=== PATIENT | male | born 1970 | race African-American/Black ===

== ENCOUNTER 2016-10-05 11:58 | Inpatient (IN) | payer OTHER ==
[2016-10-05 12:26] VITALS: BMI 31.1
--- NOTE | 2016-10-05 12:47 | HP ---
COWS - Scale Resting Pulse: 1= [place] 81-100 Sweatin= Chills/Flushing Restless Observation: 1= Difficult to Sit Still Pupil Size: 0= Normal to Room Light Bone or Joint Aches: 2= Severe Diffuse Aches Runny Nose/ Eye Tearin= Runny Nose/Eyes GI Upset > 30mins: 3= Vomiting/Diarrhea Tremor Observation: 2= Slight Tremor Visible Yawning Observation: 0= None Anxiety or Irritability: 2=Irritable/Anxious Goose Flesh Skin: 3=Piloerection COWS Score: 17 CIWA Score - CIWA Score Nausea/Vomitin Muscle Tremors: 4-Moderate,w/Arms Extend Anxiety: 3 Agitation: 1-Slight > Activity Paroxysmal Sweats: 3 Orientation: 0-Oriented Tacttile Disturbances: 0-None Auditory Disturbances: 0-None Visual Disturbances: 0-None Headache: 3-Moderate CIWA-Ar Total Score: 19 Admission ROS S - HPI Chief Complaint: "I am here to get clean again." Allergies/Adverse Reactions: Allergies Allergy/AdvReac Type Severity Reaction Status Date / Time Fish Containing Products Allergy Severe Rash Verified 10/05/16 12:15 tomato [Tomato] Allergy Severe Vomiting Verified 10/05/16 12:15 liver Allergy Severe Vomiting Uncoded 10/05/16 12:15 squash Allergy Severe Nausea Uncoded 10/05/16 12:15 NKDA Allergy Uncoded 10/05/16 12:15 History of Present Illness: Pt. is a 46 YO male here to Detox from Heroin and alcohol. Pt. has had several previous detox and Rehab admissions at [facility] over the last few years. Pt. also uses Xanax on a daily basis. Exam Limitations: No Limitations - Ebola screening Have you traveled outside of the country in the last 21 days: No Have you had contact with anyone from an Ebola affected area: No Have you been sick,other than usual withdrawal symptoms: No Do you have a fever: No - Review of Systems Constitutional: Chills, Diaphoresis, Fever, Loss of Appetite, Malaise, Night Sweats, Changes in sleep, Unintentional Wgt. Loss (Lost 5- 10 lbs. over last month.) EENT: reports: Tearing, Nose Congestion, Sinus Pressure Respiratory: reports: No Symptoms reported Cardiac: reports: No Symptoms Reported GI: reports: Diarrhea, Nausea, Poor Appetite, Vomiting, Abdominal cramping : reports: No Symptoms Reported Musculoskeletal: reports: Joint Pain, Muscle Pain, Joint Stiffness Integumentary: reports: No Symptoms Reported Neuro: reports: Headache, Tremors Endocrine: reports: No Symptoms Reported Hematology: reports: No Symptoms Reported Psychiatric: reports: Judgement Intact, Mood/Affect Appropiate, Orientated x3, Agitated, Anxious Other Systems: Reviewed and Negative Patient History - Patient Medical History Hx Anemia: No Hx Asthma: No Hx Chronic Obstructive Pulmonary Disease (COPD): No Hx Cancer: No Hx Cardiac Disorders: No Hx Congestive Heart Failure: No Hx Hypertension: No Hx Hypercholesterolemia: No Hx Pacemaker: No HX Cerebrovascular Accident: No Hx Seizures: No Hx Diabetes: No Hx Gastrointestinal Disorders: No Hx Liver Disease: No Hx Genitourinary Disorders: No Hx Sexually Transmitted Disorders: No Hx Renal Disease (ESRD): No Hx Thyroid Disease: No Hx Human Immunodeficiency Virus (HIV): No (NEGATIVE HX; Last Tested approx. 3 months ago.) Hx Hepatitis C: No (NEGATIVE HX; Last Tested approx. 3 months ago.) Hx Depression: No Hx Suicide Attempt: No (PATIENT DENIES CURRENT SI / HI.) Hx Bipolar Disorder: No Hx Schizophrenia: No - Patient Surgical History Past Surgical History: No Hx Neurologic Surgery: No Hx Cataract Extraction: No Hx Cardiac Surgery: No Hx Lung Surgery: No Hx Breast Surgery: No Hx Breast Biopsy: No Hx Abdominal Surgery: No Hx Appendectomy: No Hx Cholecystectomy: No Hx Genitourinary Surgery: No Hx Orthopedic Surgery: No Anesthesia Reaction: No - PPD History Previous Implant?: Yes Documented Results: Negative w/o proof Implanted On Prior [facility] Admission?: Yes Date: 07/19/15 Results: 0 mm PPD to be Administered?: Yes - Reproductive History Patient is a Female of Child Bearing Age (11 -55 yrs old): No (PATIENT IS MALE.) - Smoking Cessation Smoking history: Former smoker Have you smoked in the past 12 months: No Aproximately how many cigarettes per day: 0 If you are a former smoker, when did you quit?: 2015 Cigars Per Day: 0 Hx Chewing Tobacco Use: No Initiated information on smoking cessation: No - Substances Abused Heroin Route: Inhalation Frequency: Daily Amount used: 7 BAGS Age of first use: 38 Date of Last Use: 10/04/16 Cocaine Route: Inhalation Frequency: Daily Amount used: 7 BAGS Age of first use: 38 Date of Last Use: 10/04/16 Alcohol Route: Oral Frequency: Daily Amount used: 12 BEER BUDWEISER Age of first use: 20 Date of Last Use: 10/04/16 Alprazolam (Xanax) Route: Oral Frequency: Daily Amount used: 7 STICKS Age of first use: 25 Date of Last Use: 10/04/16 Family Disease History - Family Disease History Family History: Denies Admission Physical Exam [facility] - Vital Signs Vital Signs: Vital Signs - 24 hr 10/05/16 12:15 Temperature 97.5 F L Pulse Rate 84 Respiratory 20 Rate Blood Pressure 114/71 - Physical General Appearance: Yes: No Apparent Distress, Nourished, Appropriately Dressed , Tremorous, Irritable, Anxious HEENTM: Yes: Hearing grossly Normal, Normocephalic, Normal Voice, ROLY, Pharynx Normal Respiratory: Yes: Chest Non-Tender, Lungs Clear, No Respiratory Distress Neck: Yes: No masses,lesions,Nodules, Supple, Trachea in good position Breast: Yes: Breast Exam Deferred Cardiology: Yes: Regular Rhythm, Regular Rate, S1, S2 Abdominal: Yes: Normal Bowel Sounds, Non Tender, Soft Genitourinary: Yes: Within Normal Limits Back: Yes: Normal Inspection Musculoskeletal: Yes: Gait Steady, Joint Stiffness Extremities: Yes: Normal Inspection, Non-Tender, Tremors Neurological: Yes: Fully Oriented, Alert, Normal Mood/Affect, Normal Response Integumentary: Yes: Normal Color, Dry, Warm Lymphatic: Yes: Within Normal Limits - Diagnostic (1) Alcohol dependence with uncomplicated withdrawal Current Visit: Yes Status: Acute (2) Sedative, hypnotic or anxiolytic dependence with withdrawal, uncomplicated Current Visit: Yes Status: Acute (3) Cocaine dependence, uncomplicated Current Visit: Yes Status: Acute (4) Opioid dependence with withdrawal Current Visit: Yes Status: Acute Cleared for Admission [facility] - Detox or Rehab [facility] Level of Care: Medically Managed Detox Regimen/Protocol: Methadone/Librium [facility] Breath Alcohol Content Breath Alcohol Content: 0 Urine Drug Screen - Results Drug Screen Negative: No Urine Drug Screen Results: OPI-Opiates, MTD-Methadone
[2016-10-05] MEDS ORDERED: MAGNESIUM CITRATE 300 ML BOTTLE PO PRN (13:13)
[2016-10-05] MEDS ORDERED: MENTHOL/PHENOL 1 EACH UD MM PRN (13:13)
[2016-10-05] MEDS ORDERED: IBUPROFEN 400 MG TABLET (FP) PO PRN (13:13)
[2016-10-05] MEDS ORDERED: METHADONE HCL 10 MG TABLET (FOR DETOX USE ONLY) PO ONE ×2 (13:13→23:00)
[2016-10-05] MEDS ORDERED: P-EPHED 60MG/TRIPROLIDI 2.5MG TABLET PO PRN (13:13)
[2016-10-05] MEDS ORDERED: MAGNESIUM HYDROX 2400MG/30ML ORAL SUSPENSION 30 ML CUP PO PRN (13:13)
[2016-10-05] MEDS ORDERED: MAG HYDROX/AL HYDROX/SIMETH 30 ML UNIT-DOSE CUP PO PRN (13:13)
[2016-10-05] MEDS ORDERED: hydrOXYzine PAMOATE 50 MG CAPSULE (FP) PO PRN (13:13)
[2016-10-05] MEDS ORDERED: ACETAMINOPHEN 325 MG TABLET (FP) PO PRN (13:13)
[2016-10-05] MEDS ORDERED: LOPERAMIDE HCL 2 MG CAPSULE PO PRN (13:13)
[2016-10-05] MEDS ORDERED: chlordiazePOXIDE HCL 25 MG CAPSULE PO PRN (13:13)
[2016-10-05] MEDS ORDERED: chlordiazePOXIDE HCL 25 MG CAPSULE PO ONE (13:13)
[2016-10-05] MEDS ORDERED: guaiFENesin/D-METHORPHAN HB 10 ML UNIT-DOSE CUPS PO PRN (13:13)
--- NOTE | 2016-10-05 16:52 | EKG ---
Test Reason : Blood Pressure : / mmHG Vent. Rate : 074 BPM Atrial Rate : 074 BPM P-R Int : 156 ms QRS Dur : 086 ms QT Int : 370 ms P-R-T Axes : 063 033 022 degrees QTc Int : 410 ms NORMAL SINUS RHYTHM NORMAL ECG NO PREVIOUS ECGS AVAILABLE Confirmed by MIKE SZYMANSKI MD ([id number]) on 10/05/2016 4:52:22 PM Referred By: Confirmed By:MIKE SZYMANSKI MD
[2016-10-05] MEDS: chlordiazePOXIDE HCL 25 MG CAPSULE PO SCH ×2 (17:40→22:51)
[2016-10-05 20:33] LABS: URINE APPEARANCE CLEAR; URINE BILIRUBIN NEGATIVE (NEGATIVE); URINE BLOOD NEGATIVE (NEGATIVE); URINE COLOR YELLOW; URINE GLUCOSE (UA) NEGATIVE (NEGATIVE); URINE KETONE NEGATIVE (NEGATIVE); URINE LEUK ESTERASE NEGATIVE (NEGATIVE); URINE NITRITE NEGATIVE (NEGATIVE); URINE PROTEIN NEGATIVE (NEGATIVE); URINE UROBILINOGEN NEGATIVE E.U./dl (0.2-1.0)
[2016-10-05] MEDS: THIAMINE HCL 100 MG TABLET (FP) PO SCH (22:50)
[2016-10-05] MEDS: diphenhydrAMINE HCL 50 MG CAPSULE PO PRN (22:51)
[2016-10-06] MEDS: diphenhydrAMINE HCL 50 MG CAPSULE PO PRN (01:52)
[2016-10-06] MEDS: chlordiazePOXIDE HCL 25 MG CAPSULE PO SCH ×4 (06:17→22:31)
[2016-10-06 09:58] LABS: MCH 29.5 pg (25.7-33.7); MCHC 32.9 g/dl (32.0-35.9); MEAN CELL VOLUME 89.8 fl (80-96); MEAN PLT VOLUME 9.4 fl (7.5-11.1); PLATELET COUNT 142 K/MM3 (134-434); RDW 13.3 % (11.9-15.9); WHITE BLOOD COUNT 5.4 K/mm3 (4.0-10.0)
[2016-10-06] MEDS ORDERED: METHADONE HCL 10 MG TABLET (FOR DETOX USE ONLY) PO SCH (10:00)
[2016-10-06] MEDS: PRENATAL VITAMINS W/ FOLIC ACID TABLET (FP) PO SCH (10:32)
[2016-10-06 10:34] LABS: ALBUMIN 3.4 g/dl (3.4-5.0); ANION GAP 9 (8-16); CALCIUM 8.3 mg/dL (8.5-10.1); CO2 27 mmol/L (21-32); CREATININE 1.1 mg/dL (0.7-1.3); GLUCOSE,RANDOM 95 mg/dL (74-106); SGOT/AST 27 U/L (15-37); SGPT/ALT 60 U/L (12-78)
[2016-10-06 10:36] LABS: ALK PHOS 81 U/L (45-117); BILIRUBIN,TOTAL 0.3 mg/dL (0.2-1.0); TOT PROT 6.6 g/dl (6.4-8.2)
[2016-10-06] MEDS ORDERED: INFLUENZA VACCINE 45 MCG/0.5 ML (MDV 16-17) IM ONE (12:00)
--- NOTE | 2016-10-06 14:30 | PN ---
S CIWA - CIWA Score Nausea/Vomitin-Mild Nausea/No Vomiting Muscle Tremors: 4-Moderate,w/Arms Extend Anxiety: 4-Mod. Anxious/Guarded Agitation: 4-Moderately Restless Paroxysmal Sweats: No Perspiration Orientation: 0-Oriented Tacttile Disturbances: 1-Very Mild Itch/Numbness Auditory Disturbances: 0-None Visual Disturbances: 0-None Headache: 2-Mild CIWA-Ar Total Score: 16 BHS COWS - Scale Resting Pulse: 0= DC 80 or Below Sweatin=Flushed/Facial Moisture Restless Observation: 3= Extraneous Movement Pupil Size: 0= Normal to Room Light Bone or Joint Aches: 2= Severe Diffuse Aches Runny Nose/ Eye Tearin= Nasal Congestion GI Upset > 30mins: 3= Vomiting/Diarrhea Tremor Observation of Outstretched Hands: 2= Slight Tremor Visible Yawning Observation: 0= None Anxiety or Irritability: 2=Irritable/Anxious Goose Flesh Skin: 0=Smooth Skin COWS Score: 15 BHS Progress Note (SOAP) Subjective: Nausea, diarrhea, sweating, tremor, anxiety, restless, interrupted sleep ( patient request ambien 10mg tonight and psychiatry consult in AM for trazodone) Objective: 10/06/16 14:28 Last Vital Signs Temp Pulse Resp BP Pulse Ox 96.8 F L 78 18 109/71 10/06/16 14:04 10/06/16 14:04 10/06/16 14:04 10/06/16 14:04 Laboratory Tests 10/05/16 10/06/16 10/06/16 19:00 07:20 07:20 WBC 5.4 RBC 5.02 Hgb 14.8 Hct 45.0 MCV 89.8 MCHC 32.9 RDW 13.3 Plt Count 142 MPV 9.4 D Sodium 138 Potassium 4.2 Chloride 102 Carbon Dioxide 27 Anion Gap 9 BUN 15 Creatinine 1.1 D Creat Clearance w eGFR > 60 Random Glucose 95 D Calcium 8.3 L Total Bilirubin 0.3 D AST 27 D ALT 60 D Alkaline Phosphatase 81 Total Protein 6.6 Albumin 3.4 Urine Color Yellow Urine Appearance Clear Urine pH 6.0 Ur Specific [place] 1.024 Urine Protein Negative Urine Glucose (UA) Negative Urine Ketones Negative Urine Blood Negative Urine Nitrite Negative Urine Bilirubin Negative Urine Urobilinogen Negative Ur Leukocyte Esterase Negative RPR Titer 10/06/16 07:20 WBC RBC Hgb Hct MCV MCHC RDW Plt Count MPV Sodium Potassium Chloride Carbon Dioxide Anion Gap BUN Creatinine Creat Clearance w eGFR Random Glucose Calcium Total Bilirubin AST ALT Alkaline Phosphatase Total Protein Albumin Urine Color Urine Appearance Urine pH Ur Specific [place] Urine Protein Urine Glucose (UA) Urine Ketones Urine Blood Urine Nitrite Urine Bilirubin Urine Urobilinogen Ur Leukocyte Esterase RPR Titer Nonreactive Labs noted Assessment: 10/06/16 14:28 Withdrawal symptoms Plan: Continue detox Ambien 10mg PO x 1 dose tonight and psychiatry consult in AM for rx for trazodone as per patient's request
[2016-10-06] MEDS ORDERED: ZOLPIDEM TARTRATE 5 MG TABLET PO ONE (22:00)
[2016-10-06] MEDS: THIAMINE HCL 100 MG TABLET (FP) PO SCH (22:31)
[2016-10-07] MEDS: chlordiazePOXIDE HCL 25 MG CAPSULE PO SCH ×2 (05:54→10:33)
[2016-10-07] MEDS: METHADONE HCL 5 MG TABLET (FOR DETOX USE ONLY) PO SCH (10:33)
[2016-10-07] MEDS: PRENATAL VITAMINS W/ FOLIC ACID TABLET (FP) PO SCH (10:33)
--- NOTE | 2016-10-07 13:59 | CONSULT ---
[facility] Psychiatric Consult - Data Date of interview: 10/07/16 Admission source: [facility] Identifying data: This is 46 years old male with no psychiatric hospitalization history,history of MDD, PTSD, Personality disorder, preoccupied with insomnia, reports tsaking prior to admission: Seroquel 100mg po qhs Substance Abuse History: Smoking history: Former smoker. Have you smoked in the past 12 months: No. Aproximately how many cigarettes per day: 0. If you are a former smoker, when did you quit?: 2014. Cigars Per Day: 0. Hx Chewing Tobacco Use: No. Initiated information on smoking cessation: No. - Substances Abused. Heroin. Route: Inhalation. Frequency: Daily. Amount used: 7 BAGS. Age of first use: 38. Date of Last Use: 10/04/16. Cocaine. Route: Inhalation. Frequency: Daily. Amount used: 7 BAGS. Age of first use: 38. Date of Last Use: 10/04/16. Alcohol. Route: Oral. Frequency: Daily. Amount used: 12 BEER BUDWEISER. Age of first use: 20. Date of Last Use: . Alprazolam (Xanax). Route: Oral. Frequency: Daily. Amount used: 7 STICKS. Age of first use: 25. Date of Last Use: 10/04/16 Medical History: Denies Physical/Sexual Abuse/Trauma History: Patient reports to car MDD, PTSD, reports insomnia, reports taking prior to admission for his insomnia: Seroquel 100mg po qhs Additional Comment: Seroquel 100mg po qhs Mental Status Exam - Mental Status Exam Alert and Oriented to: Person Cognitive Function: Fair Patient Appearance: Unkempt Mood: Nervous, Anxious Affect: Labile Patient Behavior: Impulsive, Cooperative Speech Pattern: Excessive Voice Loudness: Mildly Loud Thought Process: Goal Oriented Thought Disorder: Being Controlled Hallucinations: Denies Suicidal Ideation: Denies Homicidal Ideation: Denies Insight/Judgement: Fair Sleep: Difficulty falling asleep Appetite: Fair Muscle strength/Tone: Normal Gait/Station: Normal Additional Comments: Seroquel 100mg po qhs Psychiatric Findings - Problem List (Protivin 1, 2,3) (1) Alcohol dependence with uncomplicated withdrawal Current Visit: Yes Status: Acute (2) Cocaine dependence with withdrawal Current Visit: Yes Status: Acute (3) Cocaine dependence, uncomplicated Current Visit: Yes Status: Acute (4) Opioid dependence with withdrawal Current Visit: Yes Status: Acute (5) Sedative, hypnotic or anxiolytic dependence with withdrawal, uncomplicated Current Visit: Yes Status: Acute (6) Cocaine dependence Current Visit: No Status: Acute (7) Opioid dependence Current Visit: No Status: Acute (8) Personality disorder, unspecified Current Visit: No Status: Acute (9) Substance induced mood disorder Current Visit: No Status: Acute (10) Major depressive disorder Current Visit: No Status: Chronic (11) Nicotine dependence Current Visit: No Status: Chronic Qualifiers: Nicotine product type: cigarettes Substance use status: uncomplicated Qualified Code(s): F17.210 - Nicotine dependence, cigarettes, uncomplicated (12) PTSD Current Visit: No Status: Chronic (13) Borderline personality disorder Current Visit: Yes Status: Suspected - Initial Treatment Plan Initial Treatment Plan: Seroquel 100mg po qhs
--- NOTE | 2016-10-07 14:02 | PN ---
S CIWA - CIWA Score Nausea/Vomitin Muscle Tremors: 3 Anxiety: 2 Agitation: 3 Paroxysmal Sweats: 3 Orientation: 0-Oriented Tacttile Disturbances: 0-None Auditory Disturbances: 1-Very Mild Visual Disturbances: 2-Mild Sensitivity Headache: 0-None Present CIWA-Ar Total Score: 19 BHS COWS - Scale Resting Pulse: 1= [place] 81-100 Sweatin= Chills/Flushing Restless Observation: 1= Difficult to Sit Still Pupil Size: 0= Normal to Room Light Bone or Joint Aches: 2= Severe Diffuse Aches Runny Nose/ Eye Tearin= Nasal Congestion GI Upset > 30mins: 3= Vomiting/Diarrhea Tremor Observation of Outstretched Hands: 2= Slight Tremor Visible Yawning Observation: 0= None Anxiety or Irritability: 1=Feels Anxious/Irritable Goose Flesh Skin: 3=Piloerection COWS Score: 15 S Progress Note (SOAP) Subjective: Sweating, Tremors, Interrupted sleep, Tremors, Vomiting, Body Aches. Objective: PT. A &O X 3, OBSERVED AMBULATING ON UNIT. 10/07/16 14:00 Vital Signs Temperature 97.3 F L 10/07/16 13:24 Pulse Rate 86 10/07/16 13:24 Respiratory Rate 18 10/07/16 13:24 Blood Pressure 129/73 10/07/16 13:24 O2 Sat by Pulse Oximetry (%) Laboratory Last Values WBC 5.4 K/mm3 (4.0-10.0) 10/06/16 07:20 RBC 5.02 M/mm3 (4.00-5.60) 10/06/16 07:20 Hgb 14.8 GM/dL (11.7-16.9) 10/06/16 07:20 Hct 45.0 % (35.4-49) 10/06/16 07:20 MCV 89.8 fl (80-96) 10/06/16 07:20 MCHC 32.9 g/dl (32.0-35.9) 10/06/16 07:20 RDW 13.3 % (11.9-15.9) 10/06/16 07:20 Plt Count 142 K/MM3 (134-434) 10/06/16 07:20 MPV 9.4 fl (7.5-11.1) D 10/06/16 07:20 Sodium 138 mmol/L (136-145) 10/06/16 07:20 Potassium 4.2 mmol/L (3.5-5.1) 10/06/16 07:20 Chloride 102 mmol/L (98-107) 10/06/16 07:20 Carbon Dioxide 27 mmol/L (21-32) 10/06/16 07:20 Anion Gap 9 (8-16) 10/06/16 07:20 BUN 15 mg/dL (7-18) 10/06/16 07:20 Creatinine 1.1 mg/dL (0.7-1.3) D 10/06/16 07:20 Creat Clearance w eGFR > 60 (>60) 10/06/16 07:20 Random Glucose 95 mg/dL (74-106) D 10/06/16 07:20 Calcium 8.3 mg/dL (8.5-10.1) L 10/06/16 07:20 Total Bilirubin 0.3 mg/dL (0.2-1.0) D 10/06/16 07:20 AST 27 U/L (15-37) D 10/06/16 07:20 ALT 60 U/L (12-78) D 10/06/16 07:20 Alkaline Phosphatase 81 U/L (45-117) 10/06/16 07:20 Total Protein 6.6 g/dl (6.4-8.2) 10/06/16 07:20 Albumin 3.4 g/dl (3.4-5.0) 10/06/16 07:20 Urine Color Yellow 10/05/16 19:00 Urine Appearance Clear 10/05/16 19:00 Urine pH 6.0 (5.0-8.0) 10/05/16 19:00 Ur Specific [place] 1.024 (1.001-1.035) 10/05/16 19:00 Urine Protein Negative (NEGATIVE) 10/05/16 19:00 Urine Glucose (UA) Negative (NEGATIVE) 10/05/16 19:00 Urine Ketones Negative (NEGATIVE) 10/05/16 19:00 Urine Blood Negative (NEGATIVE) 10/05/16 19:00 Urine Nitrite Negative (NEGATIVE) 10/05/16 19:00 Urine Bilirubin Negative (NEGATIVE) 10/05/16 19:00 Urine Urobilinogen Negative E.U./dl (0.2-1.0) 10/05/16 19:00 Ur Leukocyte Esterase Negative (NEGATIVE) 10/05/16 19:00 RPR Titer Nonreactive (NONREACTIVE) 10/06/16 07:20 LABS NOTED. 10/07/16 14:02 Assessment: 10/07/16 14:01 WITHDRAWAL SYMPTOMS. Plan: CONTINUE DETOX.
[2016-10-07] MEDS: chlordiazePOXIDE 5 MG CAPSULE PO SCH ×2 (17:04→22:50)
[2016-10-07] MEDS ORDERED: QUEtiapine FUMARATE 100 MG TABLET (FP) PO SCH (22:00)
[2016-10-07] MEDS: THIAMINE HCL 100 MG TABLET (FP) PO SCH (22:50)
[2016-10-08] MEDS: chlordiazePOXIDE 5 MG CAPSULE PO SCH ×2 (06:24→10:35)
[2016-10-08] MEDS: PRENATAL VITAMINS W/ FOLIC ACID TABLET (FP) PO SCH (10:34)
[2016-10-08] MEDS: METHADONE HCL 5 MG TABLET (FOR DETOX USE ONLY) PO SCH (10:35)
--- NOTE | 2016-10-08 11:08 | PN ---
BHS Progress Note (SOAP) Subjective: SWEATING,INTERRUPTED SLEEP,RESTLESS Objective: 10/08/16 11:07 Vital Signs - 8 hr 10/08/16 10/08/16 06:39 09:54 Temperature 96.8 F L 98.3 F Pulse Rate 108 H 95 H Respiratory 18 18 Rate Blood Pressure 157/89 131/86 Laboratory Tests 10/05/16 10/06/16 10/06/16 19:00 07:20 07:20 WBC 5.4 RBC 5.02 Hgb 14.8 Hct 45.0 MCV 89.8 MCHC 32.9 RDW 13.3 Plt Count 142 MPV 9.4 D Sodium 138 Potassium 4.2 Chloride 102 Carbon Dioxide 27 Anion Gap 9 BUN 15 Creatinine 1.1 D Creat Clearance w eGFR > 60 Random Glucose 95 D Calcium 8.3 L Total Bilirubin 0.3 D AST 27 D ALT 60 D Alkaline Phosphatase 81 Total Protein 6.6 Albumin 3.4 Urine Color Yellow Urine Appearance Clear Urine pH 6.0 Ur Specific [place] 1.024 Urine Protein Negative Urine Glucose (UA) Negative Urine Ketones Negative Urine Blood Negative Urine Nitrite Negative Urine Bilirubin Negative Urine Urobilinogen Negative Ur Leukocyte Esterase Negative RPR Titer 10/06/16 07:20 WBC RBC Hgb Hct MCV MCHC RDW Plt Count MPV Sodium Potassium Chloride Carbon Dioxide Anion Gap BUN Creatinine Creat Clearance w eGFR Random Glucose Calcium Total Bilirubin AST ALT Alkaline Phosphatase Total Protein Albumin Urine Color Urine Appearance Urine pH Ur Specific [place] Urine Protein Urine Glucose (UA) Urine Ketones Urine Blood Urine Nitrite Urine Bilirubin Urine Urobilinogen Ur Leukocyte Esterase RPR Titer Nonreactive LABS NOTED Assessment: 10/08/16 11:08 WITHDRAWAL SX. Plan: CONTINUE DETOX
--- NOTE | 2016-10-08 12:27 | PN ---
[facility] Progress Note Note: Psychiatry Attending's note : Asked to see this patient. Reason : oversedation. Chart reviewed.Patient examined at bedside. Lying in bed.Asleep.Answers to his name. Aware of his surroundings.Conversant but slurred. Markedly sedated.Able to follow simple commands. Relates well with commercial real estate underwriter + another staff at bedside. Normal vitals.No evidence of physical distress.Fair hygiene. Intervention: Seroquel is discontinued. Nursing staff made aware. Suggest adjustment of detox protocol.
[2016-10-08] MEDS: chlordiazePOXIDE HCL 10 MG CAPSULE PO SCH ×2 (17:24→22:39)
[2016-10-08] MEDS: THIAMINE HCL 100 MG TABLET (FP) PO SCH (22:39)
[2016-10-08] MEDS: diphenhydrAMINE HCL 50 MG CAPSULE PO PRN (22:41)
[2016-10-09] MEDS: chlordiazePOXIDE HCL 10 MG CAPSULE PO SCH ×2 (06:50→10:35)
[2016-10-09] MEDS ORDERED: METHADONE HCL 10 MG TABLET (FOR DETOX USE ONLY) PO SCH (10:00)
[2016-10-09] MEDS: PRENATAL VITAMINS W/ FOLIC ACID TABLET (FP) PO SCH (10:34)
--- NOTE | 2016-10-09 18:03 | PN ---
B[facility] Progress Note (SOAP) Subjective: SWEATING,INTERRUPTED SLEEP,RESTLESS Objective: 10/09/16 18:02 Vital Signs - 8 hr 10/09/16 10/09/16 13:24 17:34 Temperature 97.1 F L 97.5 F L Pulse Rate 91 H 90 Respiratory 20 20 Rate Blood Pressure 126/67 111/73 Laboratory Tests 10/05/16 10/06/16 10/06/16 19:00 07:20 07:20 WBC 5.4 RBC 5.02 Hgb 14.8 Hct 45.0 MCV 89.8 MCHC 32.9 RDW 13.3 Plt Count 142 MPV 9.4 D Sodium 138 Potassium 4.2 Chloride 102 Carbon Dioxide 27 Anion Gap 9 BUN 15 Creatinine 1.1 D Creat Clearance w eGFR > 60 Random Glucose 95 D Calcium 8.3 L Total Bilirubin 0.3 D AST 27 D ALT 60 D Alkaline Phosphatase 81 Total Protein 6.6 Albumin 3.4 Urine Color Yellow Urine Appearance Clear Urine pH 6.0 Ur Specific [place] 1.024 Urine Protein Negative Urine Glucose (UA) Negative Urine Ketones Negative Urine Blood Negative Urine Nitrite Negative Urine Bilirubin Negative Urine Urobilinogen Negative Ur Leukocyte Esterase Negative RPR Titer 10/06/16 07:20 WBC RBC Hgb Hct MCV MCHC RDW Plt Count MPV Sodium Potassium Chloride Carbon Dioxide Anion Gap BUN Creatinine Creat Clearance w eGFR Random Glucose Calcium Total Bilirubin AST ALT Alkaline Phosphatase Total Protein Albumin Urine Color Urine Appearance Urine pH Ur Specific [place] Urine Protein Urine Glucose (UA) Urine Ketones Urine Blood Urine Nitrite Urine Bilirubin Urine Urobilinogen Ur Leukocyte Esterase RPR Titer Nonreactive LABS NOTED Assessment: 10/09/16 18:03 WITHDRAWAL SX Plan: CONTINUE DETOX
--- NOTE | 2016-10-09 19:04 | PN ---
[facility] Progress Note Note: Psychiatry Attending's note: Met with patient. Doing well.Alert,steady,conversant and active. No complaints.Fully awake.Well groomed.Sociable. Mr Chand is requesting a lower dose of seroquel.Wants 50 mg/hs. Discussed with the patient.Seroquel 50 mg po hs.Ordered.Normal vitals.
[2016-10-09] MEDS ORDERED: QUEtiapine FUMARATE 50 MG TABLET PO SCH (22:00)
[2016-10-09] MEDS: THIAMINE HCL 100 MG TABLET (FP) PO SCH (22:39)
[2016-10-10] MEDS ORDERED: METHADONE HCL 5 MG TABLET (FOR DETOX USE ONLY) PO SCH (06:00)
[2016-10-10 10:15] VITALS: BP 125/78; PULSE 97; TEMP 98.6
[2016-10-10] MEDS: PRENATAL VITAMINS W/ FOLIC ACID TABLET (FP) PO SCH (10:35)
--- NOTE | 2016-10-10 11:15 | DS ---
[facility] Detox Discharge Summary Admission Date: 10/05/16 Discharge Date: 10/10/16 - History Present History: Alcohol Dependence, Cocaine Dependence, Opioid Dependence Pertinent Past History: INSOMNIA - Physical Exam Results Vital Signs: Vital Signs Temperature 98.6 F 10/10/16 10:14 Pulse Rate 97 H 10/10/16 10:14 Respiratory Rate 18 10/10/16 10:14 Blood Pressure 125/78 10/10/16 10:14 O2 Sat by Pulse Oximetry (%) Pertinent Admission Physical Exam Findings: WITHDRAWAL SX. Laboratory Tests 10/05/16 10/06/16 10/06/16 19:00 07:20 07:20 WBC 5.4 RBC 5.02 Hgb 14.8 Hct 45.0 MCV 89.8 MCHC 32.9 RDW 13.3 Plt Count 142 MPV 9.4 D Sodium 138 Potassium 4.2 Chloride 102 Carbon Dioxide 27 Anion Gap 9 BUN 15 Creatinine 1.1 D Creat Clearance w eGFR > 60 Random Glucose 95 D Calcium 8.3 L Total Bilirubin 0.3 D AST 27 D ALT 60 D Alkaline Phosphatase 81 Total Protein 6.6 Albumin 3.4 Urine Color Yellow Urine Appearance Clear Urine pH 6.0 Ur Specific [place] 1.024 Urine Protein Negative Urine Glucose (UA) Negative Urine Ketones Negative Urine Blood Negative Urine Nitrite Negative Urine Bilirubin Negative Urine Urobilinogen Negative Ur Leukocyte Esterase Negative RPR Titer 10/06/16 07:20 WBC RBC Hgb Hct MCV MCHC RDW Plt Count MPV Sodium Potassium Chloride Carbon Dioxide Anion Gap BUN Creatinine Creat Clearance w eGFR Random Glucose Calcium Total Bilirubin AST ALT Alkaline Phosphatase Total Protein Albumin Urine Color Urine Appearance Urine pH Ur Specific [place] Urine Protein Urine Glucose (UA) Urine Ketones Urine Blood Urine Nitrite Urine Bilirubin Urine Urobilinogen Ur Leukocyte Esterase RPR Titer Nonreactive LABS NOTED - Treatment Hospital Course: Detox Protocol Followed, Detoxed Safely, Responded well, Discharged Condition Good, Rehab Referral Accepted - Medication Discharge Medications: Ambulatory Orders Quetiapine Fumarate [Seroquel] 100 mg PO HS #30 tablet 10/07/16 - Diagnosis (1) Alcohol dependence with uncomplicated withdrawal Current Visit: Yes Status: Acute (2) Cocaine dependence, uncomplicated Current Visit: Yes Status: Acute (3) Opioid dependence with withdrawal Current Visit: Yes Status: Acute (4) Sedative, hypnotic or anxiolytic dependence with withdrawal, uncomplicated Current Visit: Yes Status: Acute (5) Personality disorder, unspecified Current Visit: No Status: Acute (6) Substance induced mood disorder Current Visit: No Status: Acute (7) Borderline personality disorder Current Visit: Yes Status: Suspected (8) Nicotine dependence Current Visit: No Status: Chronic Qualifiers: Nicotine product type: cigarettes Substance use status: uncomplicated Qualified Code(s): F17.210 - Nicotine dependence, cigarettes, uncomplicated - AMA Did Patient Leave Against Medical Advice: No
== END 2016-10-10 11:13 | disposition other institution (70) | DRG 773 ==
LOC: YASAS 11:58 → Y3N 12:46
PROVIDERS: ADMIT Internal Medicine; ATTEND Internal Medicine
PROC: HZ2ZZZZ Detoxification Services for Substance Abuse Treatment (ICD-10-PCS; principal; 2016-10-10)
DX: F11.23 Opioid dependence with withdrawal (principal); F13.230 Sedative, hypnotic or anxiolytic dependence with withdrawal, uncomplicated; F10.230 Alcohol dependence with withdrawal, uncomplicated; F14.20 Cocaine dependence, uncomplicated; F17.210 Nicotine dependence, cigarettes, uncomplicated; F33.9 Major depressive disorder, recurrent, unspecified; F60.9 Personality disorder, unspecified; F19.24 Other psychoactive substance dependence with psychoactive substance-induced mood disorder; F43.10 Post-traumatic stress disorder, unspecified; Z59.0 Homelessness
CPT/HCPCS: 36415; 80053; 81003; 85027; 86593; 93005; 93010

== ENCOUNTER 2016-10-10 11:27 | Inpatient (IN) | payer OTHER ==
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
[2016-10-10 13:55] VITALS: BMI 33.2
[2016-10-10] MEDS ORDERED: guaiFENesin/D-METHORPHAN HB 10 ML UNIT-DOSE CUPS PO PRN (14:43)
[2016-10-10] MEDS ORDERED: MAG HYDROX/AL HYDROX/SIMETH 30 ML UNIT-DOSE CUP PO PRN (14:43)
[2016-10-10] MEDS ORDERED: ACETAMINOPHEN 325 MG TABLET (FP) PO PRN (14:43)
[2016-10-10] MEDS ORDERED: hydrOXYzine PAMOATE 25 MG CAPSULE (FP) PO PRN (14:43)
[2016-10-10] MEDS ORDERED: NICOTINE POLACRILEX 2 MG GUM BUC PRN (14:43)
[2016-10-10] MEDS ORDERED: MAGNESIUM HYDROX 2400MG/30ML ORAL SUSPENSION 30 ML CUP PO PRN (14:43)
[2016-10-10] MEDS ORDERED: LOPERAMIDE HCL 2 MG CAPSULE PO PRN (14:43)
[2016-10-10] MEDS ORDERED: P-EPHED 60MG/TRIPROLIDI 2.5MG TABLET PO PRN (14:43)
[2016-10-10] MEDS ORDERED: IBUPROFEN 400 MG TABLET (FP) PO PRN (14:43)
[2016-10-10] MEDS ORDERED: MENTHOL/PHENOL 1 EACH UD MM PRN (14:43)
[2016-10-10] MEDS ORDERED: MAGNESIUM CITRATE 300 ML BOTTLE PO PRN (14:43)
[2016-10-10] MEDS ORDERED: NICOTINE 14 MG/24 HOURS TOPICAL PATCH TD SCH (14:45)
--- NOTE | 2016-10-10 18:04 | HP ---
[facility] Re[facility] Assess/Revision - Admission History Admitted to Rehab from: [facility] [place] Date of Admission to Rehab: 10/10/16 - Vital signs Vital Signs: Vital Signs Period Temp Pulse Resp BP Sys/Heller Pulse Ox Last 24 Hr 98.5 F 91 18 133/88 - Findings Detox History & Physical reviewed: Yes Concur with findings: Yes Comments/Additional Findings: trasnferred from detox to rehab admission as per protocol
[2016-10-10] MEDS: THIAMINE HCL 100 MG TABLET (FP) PO SCH (21:36)
[2016-10-10] MEDS: QUEtiapine FUMARATE 100 MG TABLET (FP) PO SCH (21:36)
[2016-10-11] MEDS: PRENATAL VITAMINS W/ FOLIC ACID TABLET (FP) PO SCH (09:39)
[2016-10-11] MEDS: buPROPion HCL 100 MG TABLET PO SCH (09:39)
[2016-10-11] MEDS: QUEtiapine FUMARATE 100 MG TABLET (FP) PO SCH (21:37)
[2016-10-11] MEDS: THIAMINE HCL 100 MG TABLET (FP) PO SCH (21:37)
[2016-10-11] MEDS: diphenhydrAMINE HCL 50 MG CAPSULE PO PRN (21:38)
[2016-10-12] MEDS: buPROPion HCL 100 MG TABLET PO SCH (10:28)
[2016-10-12] MEDS: PRENATAL VITAMINS W/ FOLIC ACID TABLET (FP) PO SCH (10:28)
[2016-10-12] MEDS: QUEtiapine FUMARATE 100 MG TABLET (FP) PO SCH (21:40)
[2016-10-12] MEDS: THIAMINE HCL 100 MG TABLET (FP) PO SCH (21:40)
[2016-10-12] MEDS: diphenhydrAMINE HCL 50 MG CAPSULE PO PRN (21:41)
[2016-10-13] MEDS: buPROPion HCL 100 MG TABLET PO SCH (10:22)
[2016-10-13] MEDS: PRENATAL VITAMINS W/ FOLIC ACID TABLET (FP) PO SCH (10:22)
[2016-10-13] MEDS: QUEtiapine FUMARATE 100 MG TABLET (FP) PO SCH (22:05)
[2016-10-13] MEDS: THIAMINE HCL 100 MG TABLET (FP) PO SCH (22:05)
[2016-10-14] MEDS: PRENATAL VITAMINS W/ FOLIC ACID TABLET (FP) PO SCH (09:54)
[2016-10-14] MEDS: buPROPion HCL 100 MG TABLET PO SCH (09:54)
[2016-10-14] MEDS: QUEtiapine FUMARATE 100 MG TABLET (FP) PO SCH (21:50)
[2016-10-14] MEDS: THIAMINE HCL 100 MG TABLET (FP) PO SCH (21:50)
[2016-10-15] MEDS: buPROPion HCL 100 MG TABLET PO SCH (09:55)
[2016-10-15] MEDS: PRENATAL VITAMINS W/ FOLIC ACID TABLET (FP) PO SCH (09:55)
[2016-10-15] MEDS: THIAMINE HCL 100 MG TABLET (FP) PO SCH (21:36)
[2016-10-15] MEDS: QUEtiapine FUMARATE 100 MG TABLET (FP) PO SCH (21:36)
[2016-10-16] MEDS: buPROPion HCL 100 MG TABLET PO SCH (09:34)
[2016-10-16] MEDS: PRENATAL VITAMINS W/ FOLIC ACID TABLET (FP) PO SCH (09:34)
[2016-10-16] MEDS: QUEtiapine FUMARATE 100 MG TABLET (FP) PO SCH (21:55)
[2016-10-16] MEDS: THIAMINE HCL 100 MG TABLET (FP) PO SCH (21:55)
[2016-10-17] MEDS: PRENATAL VITAMINS W/ FOLIC ACID TABLET (FP) PO SCH (09:38)
[2016-10-17] MEDS: buPROPion HCL 100 MG TABLET PO SCH (09:38)
[2016-10-17] MEDS: THIAMINE HCL 100 MG TABLET (FP) PO SCH (22:06)
[2016-10-17] MEDS: QUEtiapine FUMARATE 100 MG TABLET (FP) PO SCH (22:06)
[2016-10-18] MEDS: PRENATAL VITAMINS W/ FOLIC ACID TABLET (FP) PO SCH (09:42)
[2016-10-18] MEDS: buPROPion HCL 100 MG TABLET PO SCH (09:43)
--- NOTE | 2016-10-18 11:55 | PN ---
Psychiatric Progress Note Vital Signs: Vital Signs Period Temp Pulse Resp BP Sys/Heller Pulse Ox Last 24 Hr 98.1 F 84 18-18 128/81 Date of Session: 10/18/16 Chief Complaint:: depressed HPI: Patient is addressing alcohol dependence comorbid PTSD and Depressive disorder. ROS: WNL Current Medications: Active Medications Generic Name Dose Route Start Last Admin Trade Name Freq PRN Reason Stop Dose Admin Acetaminophen 650 mg 10/10/16 14:43 Tylenol - PO Q4H PRN FEVER OR PAIN Al Hydroxide/Mg Hydroxide 30 ml 10/10/16 14:43 Mylanta Oral Suspension - PO Q6H PRN DYSPEPSIA Bupropion HCl 150 mg 10/19/16 10:00 Wellbutrin Xl - PO DAILY TARA Diphenhydramine HCl 50 mg 10/10/16 14:43 10/12/16 21:41 Benadryl - PO 50 mg HSMR1 PRN Administration FOR ITCHING Eucalyptus/Menthol/Phenol/Sorbitol 1 each 10/10/16 14:43 Cepastat Lozenge - MM Q4H PRN SORE THROAT Guaifenesin 10 ml 10/10/16 14:43 Robitussin Dm - PO Q6H PRN COUGH Hydroxyzine Pamoate 25 mg 10/10/16 14:43 Vistaril - PO Q4H PRN AGITATION Ibuprofen 400 mg 10/10/16 14:43 Motrin - PO Q6H PRN PAIN Loperamide HCl 4 mg 10/10/16 14:43 Imodium - PO Q6H PRN DIARRHEA Magnesium Hydroxide 30 ml 10/10/16 14:43 Milk Of Magnesia - PO DAILY PRN CONSTIPATION Multivit/Folic Acid/Iron 1 tab 10/11/16 10:00 10/18/16 09:42 Vitamins (Sjr) - PO 1 tab DAILY TARA Administration Pseudoephedrine/Triprolidine 1 combo 10/10/16 14:43 Actifed - PO TID PRN NASAL CONGESTION Quetiapine Fumarate 100 mg 10/10/16 22:00 10/17/16 22:06 Seroquel - PO 100 mg HS TARA Administration Thiamine HCl 100 mg 10/10/16 22:00 10/17/16 22:06 Vitamin B1 - PO 100 mg HS TARA Administration Current Side Effect: No Lab tests ordered: No Lab tests reviewed: Yes Provider note:: Patient reports he still depressed and feels that Wellbutrin 100 mg po not effective that's why he he refused meds this am.Psycheducation regarding medication provided, will increase 150 mfg , continue to monitor progress. Total face to face time:: 15 Mental Status Exam - Mental Status Exam Alert and Oriented to: Time, Place, Person Cognitive Function: Good Patient Appearance: Well Groomed Mood: Depressed, Sad Affect: Mood Congruent Patient Behavior: Appropriate, Cooperative Speech Pattern: Clear, Appropriate Voice Loudness: Normal Thought Process: Intact, Goal Oriented Thought Disorder: Not Present Hallucinations: Denies Suicidal Ideation: Denies Homicidal Ideation: Denies Insight/Judgement: Fair Sleep: Fair Appetite: Good Muscle strength/Tone: Normal Gait/Station: Normal Psychiatric Treatment Plan - Problem List (1) Alcohol dependence Current Visit: Yes (2) PTSD Current Visit: No (3) Depressive disorder Current Visit: Yes
[2016-10-18] MEDS: QUEtiapine FUMARATE 100 MG TABLET (FP) PO SCH (21:45)
[2016-10-18] MEDS: THIAMINE HCL 100 MG TABLET (FP) PO SCH (21:45)
[2016-10-19] MEDS: PRENATAL VITAMINS W/ FOLIC ACID TABLET (FP) PO SCH (09:38)
[2016-10-19] MEDS: QUEtiapine FUMARATE 100 MG TABLET (FP) PO SCH (21:49)
[2016-10-19] MEDS: THIAMINE HCL 100 MG TABLET (FP) PO SCH (21:49)
[2016-10-20] MEDS: PRENATAL VITAMINS W/ FOLIC ACID TABLET (FP) PO SCH (10:34)
[2016-10-20] MEDS: THIAMINE HCL 100 MG TABLET (FP) PO SCH (21:37)
[2016-10-20] MEDS: QUEtiapine FUMARATE 100 MG TABLET (FP) PO SCH (21:37)
[2016-10-21] MEDS: PRENATAL VITAMINS W/ FOLIC ACID TABLET (FP) PO SCH (10:09)
[2016-10-21] MEDS: QUEtiapine FUMARATE 100 MG TABLET (FP) PO SCH (21:57)
[2016-10-21] MEDS: THIAMINE HCL 100 MG TABLET (FP) PO SCH (21:57)
[2016-10-22] MEDS: PRENATAL VITAMINS W/ FOLIC ACID TABLET (FP) PO SCH (09:44)
[2016-10-22] MEDS: QUEtiapine FUMARATE 100 MG TABLET (FP) PO SCH (21:36)
[2016-10-22] MEDS: THIAMINE HCL 100 MG TABLET (FP) PO SCH (21:36)
[2016-10-23] MEDS: PRENATAL VITAMINS W/ FOLIC ACID TABLET (FP) PO SCH (09:33)
[2016-10-23] MEDS: THIAMINE HCL 100 MG TABLET (FP) PO SCH (21:46)
[2016-10-23] MEDS: QUEtiapine FUMARATE 100 MG TABLET (FP) PO SCH (21:46)
[2016-10-23] MEDS: diphenhydrAMINE HCL 50 MG CAPSULE PO PRN (21:46)
[2016-10-24] MEDS: PRENATAL VITAMINS W/ FOLIC ACID TABLET (FP) PO SCH (09:32)
[2016-10-24] MEDS: QUEtiapine FUMARATE 100 MG TABLET (FP) PO SCH (21:47)
[2016-10-24] MEDS: THIAMINE HCL 100 MG TABLET (FP) PO SCH (21:47)
[2016-10-25] MEDS: PRENATAL VITAMINS W/ FOLIC ACID TABLET (FP) PO SCH (09:26)
[2016-10-25] MEDS: THIAMINE HCL 100 MG TABLET (FP) PO SCH (21:31)
[2016-10-26] MEDS: PRENATAL VITAMINS W/ FOLIC ACID TABLET (FP) PO SCH (10:12)
[2016-10-26] MEDS: THIAMINE HCL 100 MG TABLET (FP) PO SCH (21:56)
[2016-10-27] MEDS: PRENATAL VITAMINS W/ FOLIC ACID TABLET (FP) PO SCH (10:22)
[2016-10-27] MEDS: THIAMINE HCL 100 MG TABLET (FP) PO SCH (21:33)
[2016-10-28] MEDS: PRENATAL VITAMINS W/ FOLIC ACID TABLET (FP) PO SCH (09:29)
[2016-10-28] MEDS: THIAMINE HCL 100 MG TABLET (FP) PO SCH (21:37)
[2016-10-29] MEDS: PRENATAL VITAMINS W/ FOLIC ACID TABLET (FP) PO SCH (09:30)
[2016-10-29] MEDS: THIAMINE HCL 100 MG TABLET (FP) PO SCH (21:40)
[2016-10-30 07:02] VITALS: BP 120/80; PULSE 81; TEMP 98
--- NOTE | 2016-10-30 09:25 | PN ---
Psychiatric Progress Note Vital Signs: Vital Signs Period Temp Pulse Resp BP Sys/Heller Pulse Ox Last 24 Hr 98.0 F 81 18-18 120/80 Date of Session: 10/30/16 Chief Complaint:: discharge visit HPI: Patient is addressing alcohol, opioid dependence comorbid PTSD and Depressive disorder. ROS: WNL Current Medications: Active Medications Generic Name Dose Route Start Last Admin Trade Name Freq PRN Reason Stop Dose Admin Acetaminophen 650 mg 10/10/16 14:43 Tylenol - PO Q4H PRN FEVER OR PAIN Al Hydroxide/Mg Hydroxide 30 ml 10/10/16 14:43 10/24/16 13:52 Mylanta Oral Suspension - PO 30 ml Q6H PRN Administration DYSPEPSIA Diphenhydramine HCl 50 mg 10/10/16 14:43 10/23/16 21:46 Benadryl - PO 50 mg HSMR1 PRN Administration FOR ITCHING Eucalyptus/Menthol/Phenol/Sorbitol 1 each 10/10/16 14:43 Cepastat Lozenge - MM Q4H PRN SORE THROAT Guaifenesin 10 ml 10/10/16 14:43 Robitussin Dm - PO Q6H PRN COUGH Hydroxyzine Pamoate 25 mg 10/10/16 14:43 Vistaril - PO Q4H PRN AGITATION Ibuprofen 400 mg 10/10/16 14:43 Motrin - PO Q6H PRN PAIN Loperamide HCl 4 mg 10/10/16 14:43 Imodium - PO Q6H PRN DIARRHEA Magnesium Hydroxide 30 ml 10/10/16 14:43 Milk Of Magnesia - PO DAILY PRN CONSTIPATION Multivit/Folic Acid/Iron 1 tab 10/11/16 10:00 10/29/16 09:30 Vitamins (Sjr) - PO Not Given DAILY TARA Pseudoephedrine/Triprolidine 1 combo 10/10/16 14:43 Actifed - PO TID PRN NASAL CONGESTION Thiamine HCl 100 mg 10/10/16 22:00 10/29/16 21:40 Vitamin B1 - PO Not Given HS TARA Current Side Effect: No Lab tests ordered: No Lab tests reviewed: Yes Provider note:: Patient has completed today his treatment and met his goals, will continue to address his issues at the next level of care([facility] rehabilitation treatment program), he gained insights into his addiction, focused on importance of changing attitude for the utilizations of supports and using alternative ways to cope with life stressors. Wellbutrin and Seroquel were discontiued by the patient's request on 10/24/16, patient is stable for discharge today. Total face to face time:: 15 Mental Status Exam - Mental Status Exam Alert and Oriented to: Time, Place, Person Cognitive Function: Good, Grossly Intact Patient Appearance: Well Groomed Mood: Hopeful Affect: Appropriate, Mood Congruent Patient Behavior: Appropriate, Cooperative Speech Pattern: Clear, Appropriate Voice Loudness: Normal Thought Process: Intact, Goal Oriented Thought Disorder: Not Present Hallucinations: Denies Suicidal Ideation: Denies Homicidal Ideation: Denies Insight/Judgement: Fair Sleep: Well Appetite: Good Muscle strength/Tone: Normal Gait/Station: Normal Psychiatric Treatment Plan - Problem List (1) Alcohol dependence Current Visit: Yes (2) PTSD Current Visit: No (3) Depressive disorder Current Visit: Yes (4) Opioid dependence Current Visit: No
[2016-10-30] MEDS: PRENATAL VITAMINS W/ FOLIC ACID TABLET (FP) PO SCH (09:41)
== END 2016-10-30 10:10 | disposition home or self-care (01) | DRG 772 ==
LOC: YASAS 11:27 → Y5N 11:30
PROVIDERS: ADMIT Psychiatry & Neurology Psychiatry; ATTEND Psychiatry & Neurology Psychiatry
PROC: HZ41ZZZ Group Counseling for Substance Abuse Treatment, Behavioral (ICD-10-PCS; principal; 2016-10-30)
DX: F11.20 Opioid dependence, uncomplicated (principal); F10.20 Alcohol dependence, uncomplicated; F33.9 Major depressive disorder, recurrent, unspecified; F43.10 Post-traumatic stress disorder, unspecified; Z59.0 Homelessness

== ENCOUNTER 2022-11-21 11:36 | Inpatient (IN) | payer OTHER ==
[2022-11-21 12:17] VITALS: BMI 35.8
[2022-11-21] MEDS ORDERED: LOPERAMIDE HCL 2 MG CAPSULE PO PRN (12:35)
[2022-11-21] MEDS ORDERED: ACETAMINOPHEN 325 MG TABLET (FP) PO PRN (12:35)
[2022-11-21] MEDS ORDERED: MAGNESIUM HYDROX 2400MG/30ML ORAL SUSPENSION 30 ML CUP PO PRN (12:35)
[2022-11-21] MEDS ORDERED: BENZOCAINE/MENTHOL (CHLORASEPTIC ) LOZENGE MM PRN (12:35)
[2022-11-21] MEDS ORDERED: ONDANSETRON *ODT* 4 MG TABLET SL PRN (12:35)
[2022-11-21] MEDS ORDERED: NICOTINE 10 MG CARTRIDGE (INHALER) IH PRN (12:35)
[2022-11-21] MEDS ORDERED: BENZONATATE 200 MG CAPSULE PO PRN (12:35)
[2022-11-21] MEDS ORDERED: BISMUTH SUBSALICYLATE 262 MG/15 ML BTL PO PRN (12:35)
[2022-11-21] MEDS ORDERED: cloNIDine HCL 0.1 MG TABLET PO PRN (12:35)
[2022-11-21] MEDS ORDERED: NALOXONE HCL (KLOXXADO) 8 MG SPRAY NS PRN (12:35)
[2022-11-21] MEDS ORDERED: NALOXONE HCL 0.4 MG/ML VIAL IM PRN (12:35)
[2022-11-21] MEDS ORDERED: IBUPROFEN 600 MG TABLET (FP) PO PRN (12:35)
[2022-11-21] MEDS ORDERED: IBUPROFEN 400 MG TABLET (FP) PO PRN (12:35)
[2022-11-21] MEDS ORDERED: POLYETHYLENE GLYCOL (HEALTHYLAX) 3350 17 GM PACKET PO PRN (12:35)
[2022-11-21] MEDS ORDERED: guaiFENesin 600 MG TABLET.ER (FP) PO PRN (12:35)
[2022-11-21] MEDS ORDERED: MAG HYDROX/AL HYDROX/SIMETH 30 ML UNIT-DOSE CUP PO PRN (12:35)
[2022-11-21] MEDS ORDERED: DICYCLOMINE HCL 10 MG CAPSULE PO PRN (12:35)
[2022-11-21] MEDS ORDERED: PRENATAL VITAMINS W/ FOLIC ACID TABLET (FP) PO ONE (13:29)
[2022-11-21] MEDS: PRENATAL VITAMINS W/ FOLIC ACID TABLET (FP) PO SCH (13:32)
[2022-11-21] MEDS ORDERED: methaDONE HCL 10 MG TABLET (FOR DETOX USE ONLY) PO ONE (17:00)
[2022-11-21 18:50] LABS: HEMOGLOBIN 14.3 GM/dL (11.7-16.9); MCH 28.5 pg (25.7-33.7); MCHC 33.2 g/dl (32.0-35.9); MEAN CELL VOLUME 85.9 fl (80-96); PLATELET COUNT 181 10^3/uL (134-434); RDW 15.7 % (11.9-15.9); WHITE BLOOD COUNT 9.1 K/mm3 (4.0-10.0)
[2022-11-21 19:06] LABS: ALBUMIN 4.1 g/dl (3.4-5.0); BLOOD UREA NITROGEN 20.6 mg/dL (7-18); CALCIUM 9.6 mg/dL (8.5-10.1)
[2022-11-21 19:09] LABS: CREATININE 1.7 mg/dL (0.55-1.3)
[2022-11-21 19:11] LABS: BILIRUBIN,TOTAL 0.6 mg/dL (0.2-1); TOT PROT 7.7 g/dl (6.4-8.2)
[2022-11-21] MEDS ORDERED: MELATONIN 5 MG TABLETS PO SCH (22:00)
[2022-11-21] MEDS ORDERED: SUVOREXANT 10 MG TABLET PO PRN (22:00)
[2022-11-21] MEDS: THIAMINE HCL 100 MG TABLET (FP) PO SCH (22:49)
[2022-11-22] MEDS: PRENATAL VITAMINS W/ FOLIC ACID TABLET (FP) PO SCH (10:42)
[2022-11-22] MEDS: hydrOXYzine PAMOATE 25 MG CAPSULE (FP) PO PRN (10:43)
[2022-11-22] MEDS: METHOCARBAMOL 500 MG TABLET PO PRN (10:45)
[2022-11-23] MEDS: THIAMINE HCL 100 MG TABLET (FP) PO SCH ×2 (00:22→23:15)
[2022-11-23] MEDS ORDERED: methaDONE HCL 10 MG TABLET (FOR DETOX USE ONLY) PO ONE (10:00)
[2022-11-23] MEDS: PRENATAL VITAMINS W/ FOLIC ACID TABLET (FP) PO SCH (10:41)
[2022-11-23] MEDS: METHOCARBAMOL 500 MG TABLET PO PRN (10:41)
[2022-11-24] MEDS: PRENATAL VITAMINS W/ FOLIC ACID TABLET (FP) PO SCH (10:38)
[2022-11-24] MEDS: hydrOXYzine PAMOATE 25 MG CAPSULE (FP) PO PRN (10:38)
[2022-11-24] MEDS: METHOCARBAMOL 500 MG TABLET PO PRN (10:40)
[2022-11-24] MEDS: THIAMINE HCL 100 MG TABLET (FP) PO SCH (23:04)
[2022-11-25 06:32] VITALS: RESP 18
[2022-11-25] MEDS: PRENATAL VITAMINS W/ FOLIC ACID TABLET (FP) PO SCH (09:27)
[2022-11-25] MEDS: METHOCARBAMOL 500 MG TABLET PO PRN (09:29)
[2022-11-25] MEDS: hydrOXYzine PAMOATE 25 MG CAPSULE (FP) PO PRN (09:29)
[2022-11-25] MEDS ORDERED: methaDONE HCL 10 MG TABLET (FOR DETOX USE ONLY) PO ONE (10:00)
[2022-11-25 11:29] LABS: BLOOD UREA NITROGEN 8.2 mg/dL (7-18); CALCIUM 8.8 mg/dL (8.5-10.1)
[2022-11-25 11:32] LABS: CREATININE 0.9 mg/dL (0.55-1.3); PHOSPHOROUS 2.4 mg/dL (2.5-4.9)
[2022-11-25] MEDS: THIAMINE HCL 100 MG TABLET (FP) PO SCH (23:32)
[2022-11-26 09:29] VITALS: BP 118/76; PULSE 88; TEMP 97.3
[2022-11-26] MEDS: PRENATAL VITAMINS W/ FOLIC ACID TABLET (FP) PO SCH (10:45)
== END 2022-11-26 12:16 | disposition other institution (70) | DRG 773 ==
LOC: YASAS 11:36 → Y6N 12:55
PROVIDERS: ADMIT Allergy & Immunology; ATTEND Surgery
PROC: HZ2ZZZZ Detoxification Services for Substance Abuse Treatment (ICD-10-PCS; principal; 2022-11-21)
DX: F11.23 Opioid dependence with withdrawal (principal); F14.20 Cocaine dependence, uncomplicated; F17.210 Nicotine dependence, cigarettes, uncomplicated; F19.282 Other psychoactive substance dependence with psychoactive substance-induced sleep disorder; F19.280 Other psychoactive substance dependence with psychoactive substance-induced anxiety disorder; F19.24 Other psychoactive substance dependence with psychoactive substance-induced mood disorder; F43.10 Post-traumatic stress disorder, unspecified; G47.00 Insomnia, unspecified; Z56.0 Unemployment, unspecified; Z59.00 Homelessness unspecified
CPT/HCPCS: 36415; 80053; 80069; 83036; 85027; 86780; 87811; 93005; 93010; C9803-CS; U0003; U0005

== ENCOUNTER 2022-11-26 12:27 | Inpatient (IN) | payer OTHER ==
[2022-11-26] MEDS ORDERED: NALOXONE HCL (KLOXXADO) 8 MG SPRAY NS PRN (15:14)
[2022-11-26] MEDS ORDERED: MAG HYDROX/AL HYDROX/SIMETH 30 ML UNIT-DOSE CUP PO PRN (15:14)
[2022-11-26] MEDS ORDERED: guaiFENesin 600 MG TABLET.ER (FP) PO PRN (15:14)
[2022-11-26] MEDS ORDERED: IBUPROFEN 400 MG TABLET (FP) PO PRN (15:14)
[2022-11-26] MEDS ORDERED: LOPERAMIDE HCL 2 MG CAPSULE PO PRN (15:14)
[2022-11-26] MEDS ORDERED: POLYETHYLENE GLYCOL (HEALTHYLAX) 3350 17 GM PACKET PO PRN (15:14)
[2022-11-26] MEDS ORDERED: MAGNESIUM HYDROX 2400MG/30ML ORAL SUSPENSION 30 ML CUP PO PRN (15:14)
[2022-11-26] MEDS ORDERED: BACLOFEN 10 MG TABLET (FP) PO PRN (15:14)
[2022-11-26] MEDS ORDERED: BENZONATATE 200 MG CAPSULE PO PRN (15:14)
[2022-11-26] MEDS ORDERED: NALOXONE HCL 0.4 MG/ML VIAL IVPUSH PRN (15:14)
[2022-11-26] MEDS ORDERED: hydrOXYzine PAMOATE 25 MG CAPSULE (FP) PO PRN (15:14)
[2022-11-26] MEDS ORDERED: ACETAMINOPHEN 325 MG TABLET (FP) PO PRN (15:14)
[2022-11-26] MEDS ORDERED: IBUPROFEN 600 MG TABLET (FP) PO PRN (15:14)
[2022-11-26] MEDS ORDERED: BENZOCAINE/MENTHOL (CHLORASEPTIC ) LOZENGE MM PRN (15:14)
[2022-11-26] MEDS: MELATONIN 5 MG TABLETS PO SCH (21:27)
[2022-11-26] MEDS: THIAMINE HCL 100 MG TABLET (FP) PO SCH (21:27)
[2022-11-27] MEDS: PRENATAL VITAMINS W/ FOLIC ACID TABLET (FP) PO SCH (11:05)
[2022-11-27] MEDS: THIAMINE HCL 100 MG TABLET (FP) PO SCH (21:25)
[2022-11-27] MEDS: MELATONIN 5 MG TABLETS PO SCH (21:25)
[2022-11-28] MEDS: PRENATAL VITAMINS W/ FOLIC ACID TABLET (FP) PO SCH (10:45)
[2022-11-28] MEDS: THIAMINE HCL 100 MG TABLET (FP) PO SCH (21:28)
[2022-11-28] MEDS: MELATONIN 5 MG TABLETS PO SCH (21:28)
[2022-11-29] MEDS: PRENATAL VITAMINS W/ FOLIC ACID TABLET (FP) PO SCH (10:35)
[2022-11-29] MEDS: MELATONIN 5 MG TABLETS PO SCH (21:38)
[2022-11-29] MEDS: THIAMINE HCL 100 MG TABLET (FP) PO SCH (21:38)
[2022-11-30] MEDS: PRENATAL VITAMINS W/ FOLIC ACID TABLET (FP) PO SCH (10:19)
[2022-11-30] MEDS: THIAMINE HCL 100 MG TABLET (FP) PO SCH (22:34)
[2022-11-30] MEDS: MELATONIN 5 MG TABLETS PO SCH (22:34)
[2022-12-01] MEDS: PRENATAL VITAMINS W/ FOLIC ACID TABLET (FP) PO SCH (09:52)
[2022-12-01] MEDS: MELATONIN 5 MG TABLETS PO SCH (22:33)
[2022-12-01] MEDS: THIAMINE HCL 100 MG TABLET (FP) PO SCH (22:33)
[2022-12-02] MEDS: PRENATAL VITAMINS W/ FOLIC ACID TABLET (FP) PO SCH (11:11)
[2022-12-02] MEDS: MELATONIN 5 MG TABLETS PO SCH (22:04)
[2022-12-02] MEDS: THIAMINE HCL 100 MG TABLET (FP) PO SCH (22:04)
[2022-12-03] MEDS: PRENATAL VITAMINS W/ FOLIC ACID TABLET (FP) PO SCH (10:25)
[2022-12-03] MEDS: MELATONIN 5 MG TABLETS PO SCH (21:47)
[2022-12-03] MEDS: THIAMINE HCL 100 MG TABLET (FP) PO SCH (21:47)
[2022-12-04] MEDS ORDERED: PRENATAL VITAMINS W/ FOLIC ACID TABLET (FP) PO PRN (09:43)
[2022-12-04] MEDS: MELATONIN 5 MG TABLETS PO SCH (22:50)
[2022-12-04] MEDS: THIAMINE HCL 100 MG TABLET (FP) PO SCH (22:50)
[2022-12-05] MEDS: THIAMINE HCL 100 MG TABLET (FP) PO SCH (21:26)
[2022-12-05] MEDS: MELATONIN 5 MG TABLETS PO SCH (21:26)
[2022-12-06] MEDS: THIAMINE HCL 100 MG TABLET (FP) PO SCH (21:31)
[2022-12-06] MEDS: MELATONIN 5 MG TABLETS PO SCH (21:31)
[2022-12-07] MEDS: THIAMINE HCL 100 MG TABLET (FP) PO SCH (22:26)
[2022-12-07] MEDS: MELATONIN 5 MG TABLETS PO SCH (22:26)
[2022-12-08] MEDS: THIAMINE HCL 100 MG TABLET (FP) PO SCH (22:21)
[2022-12-08] MEDS: MELATONIN 5 MG TABLETS PO SCH (22:21)
[2022-12-09] MEDS: THIAMINE HCL 100 MG TABLET (FP) PO SCH (21:46)
[2022-12-09] MEDS: MELATONIN 5 MG TABLETS PO SCH (21:46)
[2022-12-10 07:34] VITALS: BP 118/80; PULSE 84; RESP 16; TEMP 97.3
== END 2022-12-10 09:36 | disposition home or self-care (01) | DRG 772 ==
LOC: YASAS 12:27 → Y3W 12:28
PROVIDERS: ADMIT Allergy & Immunology; ATTEND Psychiatry & Neurology Pain Medicine
PROC: HZ42ZZZ Group Counseling for Substance Abuse Treatment, Cognitive-Behavioral (ICD-10-PCS; principal; 2022-11-26)
DX: F11.20 Opioid dependence, uncomplicated (principal); F14.20 Cocaine dependence, uncomplicated; F17.210 Nicotine dependence, cigarettes, uncomplicated; F19.280 Other psychoactive substance dependence with psychoactive substance-induced anxiety disorder; F19.282 Other psychoactive substance dependence with psychoactive substance-induced sleep disorder; F19.24 Other psychoactive substance dependence with psychoactive substance-induced mood disorder; F41.9 Anxiety disorder, unspecified; F32.A Depression, unspecified; F60.9 Personality disorder, unspecified; F43.10 Post-traumatic stress disorder, unspecified; Z59.00 Homelessness unspecified
CPT/HCPCS: 36415; 86803